=== PATIENT | female | born 1970 | race Caucasian/White ===

== ENCOUNTER 2017-04-02 17:11 | Emergency (ER) | payer OTHER ==
[~2017-04-02] VITALS: Ht 165.1 cm; Wt 97.8 kg
[2017-04-02] MEDS ORDERED: ASPIRIN81 M2 PO (18:40)
[2017-04-02] MEDS ORDERED: 5-HTP100 MG PO (18:41)
[2017-04-02] MEDS ORDERED: ZYRTEC5 MG PO (18:41)
[2017-04-02 19:59] LABS: HEMATOCRIT 40.8 % (36.0-46.0); MCH 28.9 PG (29.0-34.0); MCHC 34.3 G/DL (30.0-36.0); MCV 84.3 FL (83-99); PLATELET COUNT 246 K/uL (156-360); RBC DIS.WIDTH-CV 13.2 % (11.8-14.6); RBC DIS.WIDTH-SD 41.1 % (39-53); RED BLOOD COUNT 4.84 M/uL (3.80-5.20)
[2017-04-02 20:17] LABS: ALBUMIN 4.4 g/dL (3.2-4.8); CHLORIDE 106 mEq/L (99-109); POTASSIUM 3.6 mEq/L (3.7-5.4); SODIUM 138 mEq/L (136-147)
[2017-04-02 20:19] LABS: GLUCOSE 100 mg/dL (70-99); TOTAL PROTEIN 7.9 g/dL (6.4-8.3)
[2017-04-02 20:21] LABS: TOTAL BILIRUBIN 0.5 mg/dL (0.0-1.0)
[2017-04-02 20:23] LABS: ALKALINE PHOSPHATASE 82 IU/L (3-129); CREATININE 0.9 mg/dL (0.6-1.3); GFR ESTIMATE (CALCULATED) > 59 mL/min/
[2017-04-02 20:24] LABS: UREA NITROGEN (BUN) 21 mg/dL (9-23)
[2017-04-02 20:25] LABS: AST (GOT) 48 IU/L (2-34)
[2017-04-02 20:26] LABS: ALT (GPT) 67 IU/L (3-49)
[2017-04-02] MEDS ORDERED: ANTIVERT25 MG PO (20:37)
[2017-04-02] MEDS ORDERED: ZOFRAN ODT4 MG PO (20:38)
[2017-04-02 21:16] VITALS: BP 136/94
== END 2017-04-02 21:16 | disposition home or self-care (01) ==
LOC: EME 17:11
PROVIDERS: Nurse Practitioner Family
DX: J32.9 Chronic sinusitis, unspecified (principal); R42 Dizziness and giddiness; I10 Essential (primary) hypertension; Z88.1 Allergy status to other antibiotic agents
CPT/HCPCS: 70450; 80053; 85027; 99281; 99284